=== PATIENT | male | born 1965 | race Caucasian/White ===

== ENCOUNTER 2021-09-12 14:23 | Outpatient (REF) | payer SELFPAY ==
[2021-09-12 14:57] LABS: Appearance Urine CLEAR; Color Urine YELLOW; Glucose Urine UA NEG (NEG); Leukocyte Esterase Urine NEG (NEG); Nitrite Urine NEG (NEG); Urine Blood NEG (NEG); Urine Ketones NEG (NEG); Urine Protein NEG (NEG-TRACE)
== END 2021-09-12 14:24 | disposition home or self-care (01) ==
LOC: HO.LNP 14:23
PROVIDERS: Visit Provider Internal Medicine
DX: R31.21 Asymptomatic microscopic hematuria (principal)
CPT/HCPCS: 81003

== ENCOUNTER 2022-11-01 10:29 | Outpatient (REF) | payer OTHER, SELFPAY ==
[2022-11-01 10:44] LABS: MANUAL DIFF FLAG NO
[2022-11-01 11:16] LABS: Basophils Absolute Auto 0.1 X10*3/uL (0.0-0.2); Basophils Percent Auto 1.1 % (0-2); Eosinophils Absolute Auto 0.3 X10*3/uL (0.0-0.4); Eosinophils Percent Auto 5.8 % (0-4); Hematocrit 41.8 % (42.0-52.0); Hemoglobin 14.1 g/dl (14.0-18.0); Imm Gran Abs Auto 0.01 X10*3/uL (0.00-0.03); Imm Gran Pct Auto 0.2 % (0.0-0.4); Lymphocytes Absolute Auto 2.4 X10*3/uL (1.2-4.9); Lymphocytes Percent Auto 44.2 % (20-40); Mean Corpuscular HGB Conc 33.7 g/dl (31.0-36.0); Mean Corpuscular Hemoglobin 29.8 pg (27.0-33.0); Mean Corpuscular Volume 88.4 fL (80.0-98.0); Mean Platelet Volume 9.8 fL (9.4-12.4); Monocytes Absolute Auto 0.4 X10*3/uL (0.1-1.2); Neutrophils Absolute Auto 2.3 x10*3/uL (2.0-8.3); Neutrophils Percent Auto 40.7 % (45-73); Platelet Count 261 X10*3/uL (160-400); Red Blood Count 4.73 X10*6/uL (4.60-5.80); Red Cell Distribution Width 11.9 % (11.0-16.0); White Blood Count 5.5 X10*3/uL (4.8-10.8)
[2022-11-01 11:31] LABS: Bacteria Urine None Seen (None Seen); Hyaline Casts Urine 0-2 /LPF (0-2); RBC Urine 0-2 /HPF (0-2); Squamous Epithelial Cell Urine 0-2 /HPF (0-2); WBC Urine 0-5 /HPF (0-5)
[2022-11-01 11:32] LABS: Color Urine Yellow; Glucose Urine UA Negative (Negative); Leukocyte Esterase Urine Negative (Negative); Nitrite Urine Negative (Negative); PH 5.5 (5.0-9.0); Specific Gravity - Urine >= 1.030 (1.005-1.025); Urine Blood Negative (Negative); Urine Ketones Negative (Negative); Urine Protein Negative (Neg-Trace)
[2022-11-01 11:38] LABS: Appearance Urine Clear
[2022-11-01 11:40] LABS: Alanine Aminotransferase 21 U/L (0-40); Albumin Level 4.2 g/dL (3.5-5.0); Alkaline Phosphatase 36 U/L (39-117); Anion Gap 10 (12-20); Aspartate Amino Transferase 18 U/L (5-37); Bilirubin Total 0.8 mg/dL (0.0-1.0); Blood Urea Nitrogen 23 mg/dL (9-16); Calcium 9.5 mg/dL (8.4-10.2); Carbon Dioxide 28 mmol/L (22-29); Chloride 108 mmol/L (96-108); Cholesterol 204 mg/dL; Estimated Glomerular Filt Rate > 60; Glucose Fasting 93 mg/dL (60-99); HDL Cholesterol 46 mg/dL; LDL Cholesterol Calculated 143 mg/dl; Potassium 4.2 mmol/L (3.3-5.1); Sodium 142 mmol/L (135-145); Total Protein 6.6 g/dL (6.5-8.0); Triglycerides 79 mg/dL
[2022-11-01 11:56] LABS: PSA,Total (Free>4and<10) 2.85 ng/mL (0.00-4.00)
[2022-11-06 20:48] LABS: Testosterone, Free 64.1 pg/mL (35.0-155.0); Testosterone, Total 461 ng/dL (250-1100)
== END 2022-11-01 10:30 | disposition home or self-care (01) ==
LOC: HO.LNP 10:29
PROVIDERS: Visit Provider Internal Medicine
DX: Z00.00 Encounter for general adult medical examination without abnormal findings (principal); Z12.5 Encounter for screening for malignant neoplasm of prostate; I10 Essential (primary) hypertension; E78.00 Pure hypercholesterolemia, unspecified; R97.20 Elevated prostate specific antigen [PSA]; D72.820 Lymphocytosis (symptomatic)
CPT/HCPCS: 80053; 80061; 81001; 84153; 84402; 84403; 85025

== ENCOUNTER 2023-10-03 10:44 | Outpatient (REF) | payer OTHER, SELFPAY ==
[2023-10-03 10:49] LABS: MANUAL DIFF FLAG NO
[2023-10-03 11:08] LABS: Appearance Urine Clear; Color Urine Yellow; Glucose Urine UA Negative (Negative); Leukocyte Esterase Urine Negative (Negative); Nitrite Urine Negative (Negative); PH 5.5 (5.0-9.0); Urine Blood Negative (Negative); Urine Ketones Negative (Negative); Urine Protein Negative (Neg-Trace)
[2023-10-03 11:15] LABS: Bacteria Urine None Seen (None Seen); Hyaline Casts Urine 0-2 /LPF (0-2); RBC Urine 0-2 /HPF (0-2); Squamous Epithelial Cell Urine 0-2 /HPF (0-2); WBC Urine 0-5 /HPF (0-5)
[2023-10-03 11:21] LABS: Alanine Aminotransferase 20 U/L (0-40); Albumin Level 4.2 g/dL (3.5-5.0); Alkaline Phosphatase 29 U/L (39-117); Anion Gap 10 (12-20); Aspartate Amino Transferase 19 U/L (5-37); Bilirubin Total 0.6 mg/dL (0.0-1.0); Blood Urea Nitrogen 20 mg/dL (9-16); Calcium 9.3 mg/dL (8.4-10.2); Carbon Dioxide 28 mmol/L (22-29); Chloride 107 mmol/L (96-108); Cholesterol 215 mg/dL (<200); Estimated Glomerular Filt Rate > 60; Glucose Fasting 92 mg/dL (60-99); HDL Cholesterol 49 mg/dL (>40); LDL Cholesterol Calculated 150 mg/dL (<100); Potassium 4.1 mmol/L (3.3-5.1); Sodium 141 mmol/L (135-145); Total Protein 6.9 g/dL (6.5-8.0); Triglycerides 81 mg/dL (<150)
[2023-10-03 11:29] LABS: Basophils Absolute Auto 0.1 X10*3/uL (0.0-0.2); Basophils Percent Auto 1.1 % (0-2); Eosinophils Absolute Auto 0.3 X10*3/uL (0.0-0.4); Eosinophils Percent Auto 5.3 % (0-4); Hematocrit 42.4 % (42.0-52.0); Hemoglobin 14.5 g/dl (14.0-18.0); Imm Gran Abs Auto 0.01 X10*3/uL (0.00-0.03); Imm Gran Pct Auto 0.2 % (0.0-0.4); Lymphocytes Percent Auto 42.3 % (20-40); Mean Corpuscular HGB Conc 34.2 g/dl (31.0-36.0); Mean Corpuscular Hemoglobin 30.3 pg (27.0-33.0); Mean Corpuscular Volume 88.5 fL (80.0-98.0); Mean Platelet Volume 10.3 fL (9.4-12.4); Monocytes Absolute Auto 0.4 X10*3/uL (0.1-1.2); Monocytes Percent Auto 8.5 % (2-11); Neutrophils Percent Auto 42.6 % (45-73); Platelet Count 255 X10*3/uL (160-400); Red Blood Count 4.79 X10*6/uL (4.60-5.80); White Blood Count 4.7 X10*3/uL (4.8-10.8)
[2023-10-03 11:36] LABS: PSA,Total (Free>4and<10) 5.84 ng/mL (0.00-4.00)
[2023-10-07 22:44] LABS: Free Prostate Spec Ag 1.1 ng/mL; Percent Free Prostate Spec Ag 23 % (calc) (>25); Prostate Specific Ag Total 4.7 ng/mL (< OR = 4.0)
== END 2023-10-03 10:45 | disposition home or self-care (01) ==
LOC: HO.LNP 10:44
PROVIDERS: Visit Provider Internal Medicine
DX: Z00.00 Encounter for general adult medical examination without abnormal findings (principal); I10 Essential (primary) hypertension; R97.20 Elevated prostate specific antigen [PSA]; D72.820 Lymphocytosis (symptomatic)
CPT/HCPCS: 80053; 80061; 81001; 84153; 84154; 85025

== ENCOUNTER 2023-12-27 10:14 | Outpatient (REF) | payer OTHER, SELFPAY ==
[2023-12-27 14:27] LABS: Prostate Specific Antigen 4.65 ng/mL (<0.05-4.0)
== END 2023-12-27 10:15 | disposition home or self-care (01) ==
LOC: HO.HMGCLDS 10:14
PROVIDERS: PCP Internal Medicine; Visit Provider Urology
DX: Z12.5 Encounter for screening for malignant neoplasm of prostate (principal); R97.20 Elevated prostate specific antigen [PSA]
CPT/HCPCS: 36415; 84153

== ENCOUNTER 2024-03-30 10:42 | Outpatient (REF) | payer OTHER, SELFPAY | END 2024-03-30 10:43 | disposition home or self-care (01) | LOC: HO.HMGCLDS 10:42 | PROVIDERS: PCP Internal Medicine; Visit Provider Urology | DX: Z12.5 Encounter for screening for malignant neoplasm of prostate (principal); R97.20 Elevated prostate specific antigen [PSA] | CPT/HCPCS: 36415; 84153 ==

== ENCOUNTER 2024-11-10 10:54 | Outpatient (REF) | payer OTHER, SELFPAY ==
[2024-11-10 10:59] LABS: MANUAL DIFF FLAG NO
[2024-11-10 11:04] LABS: Basophils Absolute Auto 0.1 X10*3/uL (0.0-0.2); Basophils Percent Auto 0.8 % (0-2); Eosinophils Absolute Auto 0.2 X10*3/uL (0.0-0.4); Eosinophils Percent Auto 3.3 % (0-4); Hematocrit 41.8 % (42.0-52.0); Hemoglobin 14.5 g/dl (14.0-18.0); Imm Gran Abs Auto 0.01 X10*3/uL (0.00-0.03); Imm Gran Pct Auto 0.2 % (0.0-0.4); Lymphocytes Absolute Auto 1.9 X10*3/uL (1.2-4.9); Lymphocytes Percent Auto 30.6 % (20-40); Mean Corpuscular HGB Conc 34.7 g/dl (31.0-36.0); Mean Corpuscular Hemoglobin 30.3 pg (27.0-33.0); Mean Corpuscular Volume 87.4 fL (80.0-98.0); Mean Platelet Volume 10.2 fL (9.4-12.4); Monocytes Absolute Auto 0.5 X10*3/uL (0.1-1.2); Neutrophils Absolute Auto 3.5 x10*3/uL (2.0-8.3); Neutrophils Percent Auto 57.1 % (45-73); Platelet Count 245 X10*3/uL (160-400); Red Blood Count 4.78 X10*6/uL (4.60-5.80); Red Cell Distribution Width 12.2 % (11.0-16.0); White Blood Count 6.1 X10*3/uL (4.8-10.8)
[2024-11-10 11:07] LABS: Appearance Urine Clear; Color Urine Yellow; Glucose Urine UA Negative (Negative); Leukocyte Esterase Urine Negative (Negative); Nitrite Urine Negative (Negative); Urine Blood Negative (Negative); Urine Ketones Negative (Negative); Urine Protein Negative (Neg-Trace)
[2024-11-10 11:13] LABS: Bacteria Urine None Seen (None Seen); Hyaline Casts Urine 0-2 /LPF (0-2); RBC Urine 0-2 /HPF (0-2); Squamous Epithelial Cell Urine 0-2 /HPF (0-2); WBC Urine 0-5 /HPF (0-5)
[2024-11-10 11:16] LABS: Alanine Aminotransferase 24 U/L (0-40); Albumin Level 4.2 g/dL (3.5-5.0); Alkaline Phosphatase 41 U/L (39-117); Anion Gap 9 (12-20); Aspartate Amino Transferase 27 U/L (5-37); Bilirubin Total 0.7 mg/dL (0.0-1.0); Blood Urea Nitrogen 19 mg/dL (9-16); Calcium 9.1 mg/dL (8.4-10.2); Carbon Dioxide 30 mmol/L (22-29); Chloride 106 mmol/L (96-108); Cholesterol 184 mg/dL (<200); Estimated Glomerular Filt Rate > 60; Glucose Fasting 94 mg/dL (60-99); HDL Cholesterol 47 mg/dL (>40); LDL Cholesterol Calculated 123 mg/dL (<100); Potassium 3.8 mmol/L (3.3-5.1); Sodium 141 mmol/L (135-145); Total Protein 7.5 g/dL (6.5-8.0); Triglycerides 74 mg/dL (<150)
[2024-11-10 11:43] LABS: PSA,Total (Free>4and<10) 4.66 ng/mL (0.00-4.00)
--- OUTSIDE RECORDS SUMMARY | 2024-11-10 12:55 | XMS_ITS ---
Author Organization Alexandru Gr MD Address [address] [place] [phone] Care Team Providers Care Ultrasound Technician Name Role Phone Alexandru Gr Primary Care Provider [phone] ALLERGIES Allergen (clinical drug ingredient) Drug/Non Drug Allergy documented on EMR Reaction Allergy Type Onset Date Status lisinopril Lisinopril cough Drug Allergy Activ e REASON FOR VISIT 6 month BP MEDICATIONS Medication SIG (Take, Route, Frequency, Duration) Notes Start Date End Date Status Losartan Potassium 100 MG Take 1 tablet by mouth once daily Active Sildenafil Citrate 100 MG 1 tablet as ne eded Orally Once a day for 30 day(s) 11/14/2023 Active Triamcinolone Acetonide 0.1 % 1 application to affected area Externally Twice a day for 14 days 02/04/2017 Not-Taking VITAL SIGNS BMI 27.98 kg/m2 05/14/2024 Blood pressure systolic 112 mm Hg 05/14/20 24 Blood pressure diastolic 70 mm Hg 024 Height 70 in 05/14/2024 Weight 195 lbs 05/14/2024 weight is up 2 pounds since 11-14-23 Encounters Encounter Location Date Provider Diagnosis Alexandru Gr MD [address] [place] [phone] 05/14/2024 Alexandru Gr Essential hypertension I10 ; Psoriasis L40.9 and Elevated PSA R97.20 ASSESSMENTS Encounter Date Diagnosis Assessment Notes Treatment Notes Treatment Clinical Notes 05/14/2024 Essential hypertension (ICD-10 - I10) well controlled 05/14/2024 Psoriasis (ICD-10 - L40.9) thinks that ketonazole helps so if it does i would call some in 05/14/2024 Elevated PSA (ICD-10 - R97.20) 05/14/2024 Other is being follow ed by urology watchful waiting PLAN OF TREATMENT Medication Medication Name Sig Start Date Stop Date Notes Losartan Potassium 100 MG Take 1 tablet by mouth once daily Treatment Notes Assessment Notes Essential hypertension well controlled Psoriasis thinks that ketonazo le helps so if it does i would call some in Other is being followed by urology watchful waiting Next Appt Details Provider Name:Alexandru koenigr, 11/17/2024 02:30:00 PM, [address], [address], [place], [place], [phone], Progress Notes * Examination Category Sub-Category Detail Notes General Examination GENERAL APPEARANCE: alert, w ell hydrated, in no distress HEART: no murmurs, rubs, ga llops, regular rate and rhythm LUNGS: no wheezes, rales, r honchi, good air movement, clear to auscultation bilaterally SKIN: abnormal with scalin g at forehead and scalp.
--- OUTSIDE RECORDS SUMMARY | 2024-11-10 12:55 | XMS_ITS ---
Author Organization Alexandru Gr MD Address [address] [place], [place] [phone] Care Team Providers Care Truck Terminal Manager Name Role Phone Alexandru Gr Primary Care Provider RESULTS Component Value Reference Range Notes Complete Blood Count Auto Di ff (Not yet reviewed by provider) Interpretation: Performing Lab:, [address] [place] [phone] Notes/Report: White Blood Count 6.1 4.8-10.8 X10*3/uL Red Blood Count 4.78 4.60-5.80 X10*6/uL Hemoglobin 14.5 14.0-18.0 g/dl Hematocrit 41.8 42.0-52.0 % Mean Corpuscular Volume 87.4 80.0-98.0 fL Mean Corpuscular Hemoglobin 30.3 27.0-33.0 pg Mean Corpuscular HGB Conc 34.7 31.0-36.0 g/dl Red Cell Distribution Width 12.2 11.0-16.0 % Platelet Count 245 160-400 X10*3/uL Mean Platelet Volume 10.2 9.4-12.4 fL Neutrophils Percent Auto 57.1 45-73 % Imm Gran Pct Auto 0.2 0.0-0.4 % Lymphocytes Percent Auto 30.6 20-40 % Monocytes Percent Auto 8.0 2-11 % Eosinophils Percent Auto 3.3 0-4 % Basophils Percent Auto 0.8 0-2 % NRBC Pct Auto 0.0 0.0-0.2 /100WBC Neutrophils Absolute Auto 3.5 2.0-8.3 x10*3/u L Imm Gran Abs Auto 0.01 0.00-0.03 X10*3/uL Lymphocytes Absolute Auto 1.9 1.2-4.9 X10*3/u L Monocytes Absolute Auto 0.5 0.1-1.2 X10*3/uL Eosinophils Absolute Auto 0.2 0.0-0.4 X10*3/u L Basophils Absolute Auto 0.1 0.0-0.2 X10*3/uL NRBC Abs Auto 0.000 0.0-0.012 X10*3/uL Comprehensive [place]. Panel Fa st (Not yet reviewed by provider) Interpretation: Performing Lab:, [address] [place] [phone] Notes/Report: Sodium 141 135-145 mmol/L Potassium 3.8 3.3-5.1 mmol/L Slight Hemoly sis.Interpret result with caution. Chloride 106 96-108 mmol/L Carbon Dioxide 30 22-29 mmol/L Anion Gap 9 12-20 Blood Urea Nitrogen 19 9-16 mg/dL Creatinine 0.99 0.5-1.4 mg/dL Estimated Glomerular Filt Rate > 60 Chronic Kidney Disease: Estimated GFR < 60 mL/min/1.73m2 Severe Kidney Disease: Estimated GFR < 15 mL/min/1.73m2 Glucose Fasting 94 60-99 mg/dL Calcium 9.1 8.4-10.2 mg/dL Bilirubin Total 0.7 0.0-1.0 mg/dL Aspartate Amino Transferase 27 5-37 U/L Slight Hemolysis.Interpret result with caution. Alanine Aminotransferase 24 0-40 U/L Total Protein 7.5 6.5-8.0 g/dL Albumin Level 4.2 3.5-5.0 g/dL Alkaline Phosphatase 41 39-117 U/L Lipid Panel (Not yet reviewe d by provider) Interpretation: Performing Lab:, [address] [place] [phone] Notes/Report: Triglycerides 74 <150 mg/dL Slight Lipemia. Desirable Triglyceride: less than 150 mg/dL Borderline High Triglyceride 150-199 mg/dL High Triglyceride: 200-499 mg/dL Very High Triglyceride: greater than or equal to 5OO mg/dL Cholesterol 184 <200 mg/dL Desirable Cholesterol: less than 200 mg/dL Borderline High Cholesterol: 200-239 mg/dL High Cholesterol: greater than 239 mg/dL LDL Cholesterol Calculated 123 <100 mg/dL Desirable LDL: less than 100 mg/dL Near Optimal/Above Optimal LDL: 110-129 mg/dL Borderline High LDL: 130-159 mg/dL High LDL: 160-189 mg/dL Very High LDL: greater than or equal to 190 mg/dL HDL Cholesterol 47 >40 mg/dL Desirable HDL: greater than 40 mg/dL Note: This HDL assay may give artificially low results in patients with liver disease. PSA,Total (Free>4and<10) (No t yet reviewed by provider) Interpretation: Performing Lab:, [address] [place] [phone] Notes/Report: PSA,Total (Free>4and<10) 4.66 0.00-4.00 ng/mL PSA methodology: [place] Alinity i Chemiluminescent Microparticle Immunoassay (CMIA) UA ClnCatch+Micro w/rflx Cul t (Not yet reviewed by provider) Interpretation: Performing Lab:[address] [phone] Notes/Report: [id number] Urine, Clean Catch Color Urine Yellow Appearance Urine Clear PH 6.0 5.0-9.0 Glucose Urine UA Negative Negative mg/dL Urine Blood Negative Negative Specific [place] - Urine 1.020 1.005-1.025 Urine Protein Negative Neg-Trace mg/dL Urine Ketones Negative Negative mg/dL Nitrite Urine Negative Negative Leukocyte Esterase Urine Negative Negative RBC Urine 0-2 0-2 /HPF WBC Urine 0-5 0-5 /HPF Squamous Epithelial Cell Urine 0-2 0-2 /HPF Bacteria Urine None Seen None Seen Hyaline Casts Urine 0-2 0-2 /LPF REASON FOR VISIT yearly faxing labs Encounters Encounter Location Date Provider Diagnosis Alexandru Gr MD [address] [place], [place] [phone] 11/10/2024 Alexandru Gr Blood tests for rout ine general physical examination Z00.00 ; Essential hypertension I10 ; Pure hypercholesterolemia E78.00 ; Rising PSA level R97.20 and Lymphocytosis D72.820 ASSESSMENTS Encounter Date Diagnosis Assessment Notes Treatment Notes Treatment Clinical Notes 11/10/2024 Blood tests for rout ine general physical examination (ICD-10 - Z00.00) 11/10/2024 Essential hypertensi on (ICD-10 - I10) 11/10/2024 Pure hypercholestero lemia (ICD-10 - E78.00) 11/10/2024 Rising PSA level (IC D-10 - R97.20) 11/10/2024 Lymphocytosis (ICD-1 0 - D72.820) PLAN OF TREATMENT Pending Test Test Name Order Date Complete Blood Count Auto Diff Comprehensive [place]. Panel Fast Lipid Panel 11/10/2024 PSA,Total (Free>4and<10) 11/10/2024 UA ClnCatch+Micro w/rflx Cult 11/10/2024 Next Appt Details Provider Name:Alexandru schneider, 11/17/2024 02:30:00 PM, [address] [place] [address] Drive, [address], [place], [place], [phone],
--- OUTSIDE RECORDS SUMMARY | 2024-11-10 12:55 | XMS_ITS | Patient Health Record ---
Author Organization Alexandru Gr MD Address [address] [place], [place] [phone] Care Team Providers Care Graduate Civil Engineer Name Role Phone Alexandru Gr Primary Care Provider ALLERGIES Allergen (clinical drug ingredient) Drug/Non Drug Allergy documented on EMR Reaction Allergy Type Onset Date Status lisinopril Lisinopril cough Drug Allergy Activ e RESULTS Component Value Reference Range Notes Occult Blood, Stool, Guaiac Reviewed date:11/14/2023 06:33:51 PM Interpretation:Negative Performing Lab: Notes/Report: Negative Occult Blood, Stool, Guaiac Neg Prostate Specific Antigen Reviewed date:12/27/2023 04:10:23 PM Interpretation: Performing Lab:[facility], [address] [place] [phone] Notes/Report: Prostate Specific Antigen 4.65 <0.05-4.0 ng/mL PSA methodology: [place] Alinity i Chemiluminescent Microparticle Immunoassay (CMIA) Prostate Specific Antigen Reviewed date:03/31/2024 03:45:42 PM Interpretation:see TE from 03-31-24 Performing Lab:[facility], [address] [place] [phone] Notes/Report: Prostate Specific Antigen 4.20 <0.05-4.0 ng/mL PSA methodology: [place] Alinity i Chemiluminescent Microparticle Immunoassay (CMIA) Complete Blood Count Auto Di ff (Not yet reviewed by provider) Interpretation: Performing Lab:[address] [phone] Notes/Report: White Blood Count 6.1 4.8-10.8 X10*3/uL [...] NRBC Abs Auto 0.000 0.0-0.012 X10*3/uL Comprehensive [place]. Panel Fa st (Not yet reviewed by provider) Interpretation: Performing Lab:[facility], [address] [place] [phone] Notes/Report: Sodium 141 135-145 mmol/L Potassium 3.8 [...] yet reviewe d by provider) Interpretation: Performing Lab:[address] [phone] Notes/Report: Triglycerides 74 <150 mg/dL Slight Lipemia. [...] t yet reviewed by provider) Interpretation: Performing Lab:[address] [phone] Notes/Report: PSA,Total (Free>4and<10) 4.66 0.00-4.00 ng/mL PSA methodology: [place] Alinity i Chemiluminescent Microparticle Immunoassay (CMIA) UA ClnCatch+Micro w/rflx Cul t (Not yet reviewed by provider) Interpretation: Performing Lab:[address] [phone] Notes/Report: [id number] 0800 Urine, Clean Catch Color Urine Yellow Appearance Urine Clear PH 6.0 5.0-9.0 Glucose Urine UA Negative Negative mg/dL Urine Blood Negative Negative Specific [place] - Urine 1.020 1.005-1.025 Urine Protein Negative Neg-Trace mg/dL Urine Ketones Negative Negative mg/dL Nitrite Urine Negative Negative Leukocyte Esterase Urine Negative Negative RBC Urine 0-2 0-2 /HPF WBC Urine 0-5 0-5 /HPF Squamous Epithelial Cell Urine 0-2 0-2 /HPF Bacteria Urine None Seen None Seen Hyaline Casts Urine 0-2 0-2 /LPF REASON FOR REFERRAL Reason tonsil pain Diagnosis 1 Tonsil pain (R09.89) Referral Organization Alexandru Gr MD Referring Provider First Name Alexandru Referring Provider Last Name Maile Referring Provider Speciality Internal M edicine Referred Provider LUIS CHAPA Referred Provider Specialty Otolaryngolo gy General Notes Kay Dupree 11:34:41 AM EST > info faxed along with ENT referral marked urgent p [phone], Kay Dupree 11/26/2023 08:56:31 AM EST > appt is with Rita REYES , Kay Dupree 11/26/2023 08:59:40 AM EST > left message for patient to call office , Kay Dupree 11/26/2023 09:05:54 AM EST > patient called back iabove info given to patient Referral Priority Routine Referral Appointment Date 11/28/2023 Reason Rising PSA level Diagnosis 1 Rising PSA level (R9 7.2) Referral Organization Alexandru Gr MD Referring Provider First Name Alexandru Referring Provider Last Name Maile Referring Provider Speciality Internal edicine Referred Provider Michael Joseph Referred Provider Specialty Urology General Notes Kay Dupree 11:39:52 AM EST > info faxed p [phone], Kay Dupree 11/18/2023 09:01:23 AM EST > spoke with office they will reach out to patient and call our office with the appt , Kay Dupree 11/26/2023 09:04:59 AM EST > not 3-14-24 to 3-24, Kay Dupree 11/26/2023 09:25:26 AM EST > appt is in their [place] office info mailed to patient Referral Priority Routine Referral Appointment Date 12/26/2023 Reason skin lesion of face skin lesion on nose Diagnosis 1 Skin lesion of face (L98.9) Referral Organization Alexandru Gr MD Referring Provider First Name Alexandru Referring Provider Last Name Maile Referring Provider Speciality Internal M edicine Referred Provider [place] [facility] Eugenio andre Referred Provider Specialty Dermatology General Notes Kay Dupree 11:41:34 AM EST > info faxed Referral Priority Routine Referral Appointment Date 11/29/2023 MEDICATIONS Medication SIG (Take, Route, Frequency, Duration) Notes Start Date End Date Status valACYclovir HCl 1 GM 1 tablet Orally 3 times per day for 7 days 10/13/2024 Active Losartan Potassium 100 MG Take 1 tablet by mouth once daily Active Triamcinolone Acetonide 0.1 % 1 application to affected area Externally Twice a day for 14 days 02/04/2017 Not-Taking Sildenafil Citrate 100 MG 1 tablet as ne eded Orally Once a day for 30 day(s) 11/14/2023 Active IMMUNIZATIONS Vaccine Route Administration Date Status Comme nts Flu Vaccine Unknown 08/24/2012 Administered DECLINED, FLU Unknown 12/15/2013 Administered Flu Vaccine Unknown 08/10/2014 Administered Flu Vaccine IM Intramuscular 07/22/2015 Administered pt re cived the vaccine at [facility], he got the [employer] Fluarix Quadrivalent IM Intramuscular 07/31/2016 Administe red pt was given the vaccine at [facility] in [place]. Fluarix Quadrivalent IM Intramuscular 07/29/2017 Administe red TDaP IM Intramuscular 03/31/2018 Administered pt was given the vaccine at [facility]. Fluarix Quadrivalent IM Intramuscular 08/13/2018 Administe red pt was given the vaccine at [facility] in [facility]. Tetanus Unknown 03/31/2018 Administered Fluarix Quadrivalent IM Intramuscular 07/30/2019 Administe red pt was given the vaccine at [facility] in [place]. Fluarix Quadrivalent IM Intramuscular 07/02/2020 Administe red [facility] Shingrix Unknown 07/02/[address] [facility] Fluarix Quadrivalent Unknown 08/06/2021 Administered SARS-COV-2 Pfizer Unknown 11/20/2020 Administered SARS-COV-2 Pfizer Unknown 12/11/2020 Administered Sh[facility] Unknown 10/24/2021 Administered [facility] Fluarix Quadrivalent Unknown 07/18/2022 Administered [facility] SARS-COV-2 Pfizer Unknown 11/13/[address] [facility] Flu[facility]ix Quadrivalent Unknown 09/08/2023 Administered [facility] SARS-COV-2 Pfizer Unknown 12/14/2023 Administered SARS-COV-2 Pfizer Unknown 12/14/[address] [facility] Flu[facility]ix Quadrivalent - 150 Unknown 08/19/2024 Administered [facility] PPSV23 (Pnemovax) Unknown 03/10/2019 Refused SOCIAL HISTORY Tobacco Use: Social History Observation Description Date Details (start date - stop date) Never Smoker NA - NA Sex Assigned At : Social History Observation Description Sex Assigned At Unknown Tobacco Use/Smoking Question Answer Notes Patient is a nonsmoker Additional Findings: Tobacco Non-User Cu rrent non-smoker, currently using no form of tobacco Alcohol Screen Question Answer Notes Did you have a drink contain ing alcohol in the past year? Yes How often did you have a dri nk containing alcohol in the past year? Monthly or less (1 point) How many drinks did you have on a typical day when you were drinking in the past year? 1 or 2 drinks (0 point) How often did you have 6 or more drinks on one occasion in the past year? Never (0 point) Points 1 Interpretation Negative PROBLEMS Problem Type ICD Code Onset Dates Problem Status W/U Status Risk SNOMED Code Notes Problem Lymphocytosis (D72.820) Active confirmed 13118779 Problem Annual physical exam (Z00.00) Active confirmed 586873641 Problem Tubular adenoma of colon (D12.6) Active confirmed 642005257 Problem Essential hypertensi on (I10) Active confirmed 43210960 Problem Psoriasis (L40.9) Active confirmed 9014 002 Problem Rising PSA level (R97.2) Active confirmed Biochemically recurrent prostate cancer (disorder) (69666582987379 1) Problem Sciatica of left bre e (M54.32) Active confirmed 75942084 Problem Rising PSA level (R97.20) Active confirmed 461067536 Problem Pure hypercholesterolemia (E78.00) Active confirmed 085409619 Problem Primary erectile dysfunction (N52.9) Active confirmed 266048037 VITAL SIGNS Blood pressure diastolic 100 mm Hg 10/13/2024 Height 70 in 10/13/2024 Blood pressure systolic 180 mm Hg 10/13/2024 Weight 195 lbs 10/13/2024 BMI 27.98 kg/m2 10/13/2024 Encounters Encounter Location Date Provider Diagnosis Alexandru Gr MD [address] [place] [id number] 11/14/2023 Alexandru Gr Tonsil pain R09.89 ; Encounter for general adult medical examination without abnormal findings Z00.00 ; Essential hypertension I10 ; Primary erectile dysfunction N52.9 ; Hip pain, right M25.551 ; Elevated PSA R97.20 ; Skin lesion of face L98.9 ; Pure hypercholesterolemia E78.00 ; Colon cancer screening Z12.11 and Depression screening Z13.31 Alexandru Gr MD [address] [place] [address] Drive [address] [place] [id number] 11/10/2024 Alexandru Gr Blood tests for rout ine general physical examination Z00.00 ; Essential hypertension I10 ; Pure hypercholesterolemia E78.00 ; Rising PSA level R97.20 and Lymphocytosis D72.820 Alexandru Gr MD [address] [place] [address] Drive [address] [place] [id number] 05/14/2024 Alexandru Gr Essential hypertensi on I10 ; Psoriasis L40.9 and Elevated PSA R97.20 Alexandru Gr MD [address] [place] [id number] 10/13/2024 Alexandru Gr Periodic heart flutt er I49.8 and Neuropathic pain M79.2 Alexandru Gr MD [address] [place] [id number] 03/31/2024 Alexandru Gr ASSESSMENTS Encounter Date Diagnosis Assessment Notes Treatment Notes Treatment Clinical Notes 11/14/2023 Encounter for genera l adult medical examination without abnormal findings (ICD-10 - Z00.00) labs reviewed and discussed with patient 11/14/2023 Tonsil pain (ICD-10 - R09.89) refer to ent in [place] 11/10/2024 Essential hypertensi on (ICD-10 - I10) 11/10/2024 Blood tests for rout ine general physical examination (ICD-10 - Z00.00) 05/14/2024 Essential hypertensi on (ICD-10 - I10) well controlled 10/13/2024 Neuropathic pain (IC D-10 - M79.2) does not have any skin lesions and ear is normal, patient verbalize understanding of medication and directions for use 10/13/2024 Periodic heart flutt er (ICD-10 - I49.8) only lasted one second probably pvc 11/14/2023 Essential hypertensi on (ICD-10 - I10) will recheck in 6 months, continue current regiment 11/10/2024 Pure hypercholestero lemia (ICD-10 - E78.00) 05/14/2024 Psoriasis (ICD-10 - L40.9) thinks that ketonazole helps so if it does i would call some in 11/14/2023 Primary erectile dysfunction (ICD-10 - N52.9) has used sildenaful successfully, will continue current regiment 11/10/2024 Rising PSA level (IC D-10 - R97.20) 05/14/2024 Elevated PSA (ICD-10 - R97.20) 11/14/2023 Hip pain, right (ICD -10 - M25.551) 11/10/2024 Lymphocytosis (ICD-1 0 - D72.820) 11/14/2023 Elevated PSA (ICD-10 - R97.20) refer to urology in [place] 11/14/2023 Skin lesion of face (ICD-10 - L98.9) to see derma next week 11/14/2023 Pure hypercholestero lemia (ICD-10 - E78.00) stable 11/14/2023 Colon cancer screeni ng (ICD-10 - Z12.11) guaiac negative 11/14/2023 Depression screening (ICD-10 - Z13.31) negative screen 05/14/2024 Other is being follow ed by urology watchful waiting PLAN OF TREATMENT Pending Test Test Name Order Date Electrocardiogram (EKG) 01/23/2016 Electrocardiogram (EKG) 03/13/2018 Electrocardiogram (EKG) 03/19/2019 Complete Blood Count Auto Diff 5 Comprehensive [place]. Panel Fast Lipid Panel 11/10/2024 PSA,Total (Free>4and<10) 11/10/2024 UA ClnCatch+Micro w/rflx Cult 11/10/2024 Next Appt Details Provider Name:Alexandru Manrique ier, 11/17/2024 02:30:00 PM, [address] [facility], [address], [place], [place], [phone], Insurance Providers Payer Name Payer Address Payer Phone Subscriber Number Group Number Insured Name Patient Relationship to Insured Coverage Start Date Coverage End Date [facility] [address] [facility] [address] [facility] [phone] [id number] Andrei Harrison Self - patient is the insured 5 MEDICAL (GENERAL) HISTORY Medical History History ICD Code colonoscopy 1998; colonoscopy 03/14/[address] Spicer - repeat 5 years Hx of guaiac positive stools
--- OUTSIDE RECORDS SUMMARY | 2024-11-10 12:55 | XMS_ITS ---
Author Organization Alexandru Gr MD Address [address] [place] [phone] Care Team Providers Care Second Floor Operator Name Role Phone Alexandru Gr Primary Care Provider [phone] ALLERGIES Allergen (clinical drug ingredient) Drug/Non Drug Allergy documented on EMR Reaction Allergy Type Onset Date Status lisinopril Lisinopril cough Drug Allergy Activ e REASON FOR VISIT ? shingles feeling on the top of his head like 2 years ago MEDICATIONS Medication SIG (Take, Route, Frequency, Duration) [...] a day for 30 day(s) 11/14/2023 Active VITAL SIGNS BMI 27.98 kg/m2 10/13/2024 Blood pressure systolic 180 mm Hg 10/13/20 24 Blood pressure diastolic 100 mm Hg 024 Height 70 in 10/13/2024 Weight 195 lbs 10/13/2024 Encounters Encounter Location Date Provider Diagnosis Alexandru Gr MD [address] [place] [id number] 10/13/2024 Alexandru Gr Periodic heart flutter I49.8 and Neuropathic pain M79.2 ASSESSMENTS Encounter Date Diagnosis Assessment Notes Treatment Notes Treatment Clinical Notes 10/13/2024 Periodic heart flutter (ICD-10 - I49.8) only lasted one second probably pvc 10/13/2024 Neuropathic pain (ICD-10 - M79.2) does not have any skin lesions and ear is normal, patient verbalize understanding of medication and directions for use PLAN OF TREATMENT Medication Medication Name Sig Start Date Stop Date Notes valACYclovir HCl 1 GM 1 tablet Orally 3 times per day for 7 days 10/13/2024 Treatment Notes Assessment Notes Periodic heart flutter only lasted one s econd probably pvc Neuropathic pain does not have any sk in lesions and ear is normal, patient verbalize understanding of medication and directions for use Next Appt Details Provider Name:Alexandru schneider, 11/17/2024 02:30:00 PM, [address] [place] [address], [address], [place], [place], [phone], Progress Notes * Examination Category Sub-Category Detail Notes General Examination GENERAL APPEARANCE: alert, w ell hydrated, in no distress HEAD: no rash EARS: RIGHT EAR normal HEART: no murmurs, rubs, ga llops , regular rate and rhythm SKIN: no rashes
[2024-11-11 12:58] LABS: Free Prostate Spec Ag 0.9 ng/mL; Percent Free Prostate Spec Ag 19 % (calc) (>25); Prostate Specific Ag Total 4.7 ng/mL (< OR = 4.0)
== END 2024-11-10 10:55 | disposition home or self-care (01) ==
LOC: HO.LNP 10:54
PROVIDERS: Visit Provider Internal Medicine
DX: Z00.00 Encounter for general adult medical examination without abnormal findings (principal); I10 Essential (primary) hypertension; E78.00 Pure hypercholesterolemia, unspecified; D72.820 Lymphocytosis (symptomatic); R97.20 Elevated prostate specific antigen [PSA]; Z12.5 Encounter for screening for malignant neoplasm of prostate
CPT/HCPCS: 80053; 80061; 81001; 84153; 84154; 85025